=== PATIENT | female | born 2000 | race Caucasian/White ===

== ENCOUNTER 2025-08-01 09:03 | Outpatient (AMB) | payer MEDICAID, SELFPAY ==
[2025-08-01 09:16] VITALS: BP 97/63; PULSE 83; RESP 18; TEMP 36.4; O2SAT 96; BMI 29.8
--- NOTE | 2025-08-01 09:16 | AMB.OBINITIA ---
Vital Signs 08/01/25 09:16 Height 1.6 m Height Method Stated Weight 76.43 kg Weight Measurement Method Standing Scale BMI 29.8 BP 97/63 Blood Pressure Source Automatic Cuff Blood Pressure Location Right Upper Arm Position Sitting Respiration 18 Pulse 83 Pulse Source Monitor Temp 97.6 F Temp Source Temporal Artery Scan Pulse Oximetry (%) 96 Oxygen Delivery Method Room Air Allergies/Home Meds Allergies & Medications Allergies No Known Allergies Allergy (Verified 08/01/25 09:17) Medication Reconciliation No Known Home Medications 08/01/25 [History Confirmed 08/01/25] Intake Visit Data Collection New Patient or Established: New Patient (never been to [facility]) Reason for Visit:: OBI TRANSFER Seen by Clinical Staff ONLY (RN/MA): No Side Panel Hanger Required: No Do You Feel Safe at Home: Yes Authorities Contacted: N/A PCP or OBGYN visit in last 3 months: No Hx Now: Yes Are you currently on any form of Control: No Last menstrual period: 12/26/24 Pain Present Currently: No Pain Scale Used: Meidna-Nicholas/Numerical Pain scale:: 0 Smoking Status Smoking Status: Never smoker Immunizations Flu Vaccine in the Last 12 Months: No Flu Vaccine Exclusion Criteria: No Exclusion Criteria Questionnaires Covid-19 Vaccine Questionnaire Has patient been vacinated for Covid-19 Have you been vacinated for Covid-19: No PHQ-9 PHQ-2 Over the last 2 weeks, how often have you been bothered by any of the following problems? 1. Little interest or pleasure in doing things: not at all 2. Feeling down, depressed, or hopeless: not at all Total score: 0 PHQ-9 3. Trouble falling or staying asleep, or sleeping too much: Not at all 4. Feeling tired or having little energy: Not at all 5. Poor appetite or overeating: Not at all 6. Feeling bad about yourself - or that you are a failure or have let yourself or your family down: Not at all 7. Trouble concentrating on things, such as reading the newspaper or watching television: Not at all 8. Moving or speaking so slowly that other people could have noticed? - Or the opposite - being so fidgety or restless that you have been moving around a lot more than usual: not at all 9. Thoughts that you would be better off or of hurting yourself in some way: Not at all Total score: 0 If you checked off any problems, how difficult have these problems made it for you to do your work, take care of things at home, or get along with other people?: not difficult at all Source: Developed by Drs. Krish Andrade, Jannie Troy, Zaid Mckinley and colleagues, with an educational teja from [employer]. Depression screen completed yes Social History Living Situation History Marital Status: Lives With: Family Housing: House Tobacco History Smoking Status: Never smoker Second Hand Smoke Exposure: No Alcohol History Alcohol Intake: Never Domestic Abuse History Do You Feel Safe at Home: Yes History of Present Illness HPI Narrative ?25 Years old G2 P?1at gestational age?based on last menstrual period of dated?. No complaints so far Here for first visit LPS LMP Ultrasound medical problems Allergies Surgical history social history OB Initial Visit OB Flowsheet OB Flowsheet Initial Weight: Not Recorded Date <del>?</del> EGA Weight BP Alb Glu CTX Pres Fundal ht FHR Mov Dilation Station Effacement Hx Notes Visit Note 08/01/25 <del>?</del> 33w 6d 76.43 kg 97/63 cephalic 35 151 active Menstrual History Menstrual reliability: unknown Flow: normal Menstrual regularity: irregular Monthly: No On control pills at conception: No OB History : 2 Para: 1 # of Living Children: 1 Delivery History 1st : Child's name: JENNIFER HUMMEL date: 12/09/21 sex: male Delivery type: Infection History & Risk Evaluation History of STDs: none Genetic Screening & History Genetic Screening/Teratology Counseling - Includes patient, baby's father, or anyone in either family with: 1. Patient's age 35 years or older as of estimated date of delivery: No 2. Thalassemia (Austrian, Kinyarwanda, Mediterranean, or Background); MCV less than 80: No 3. Neural Tube Defect (Meningomyelocele, Spina Bifida, or Anencephaly): No 4. Congenital Heart Defect: No 5. Down Syndrome: No 6. Alex-Sachs (Ashkenazi Yazidism, Cajun, Egyptian Liberian): No 7. Judith Disease (Ashkenazi Yazidism): No 8. Familial Dysautonomia (Ashkenazi Yazidism): No 9. Sickle Cell Disease or Trait (): No 10. Hemophilia or other blood disorders: No 11. Muscular Dystrophy: No 12. Cystic Fibrosis: No 13. Montgomery's Chorea: No 14. Mental Retardation/Autism: Yes 15. Other inherited genetic or chromosomal disorder: No 16. Maternal Metabolic Disorder (EG,TYPE 1 Diabetes, PKU): No 17. Patient or baby's father had a child with defects not listed above: No 18. Recurrent loss or a stillbirth: No 19. Medications (including supplements, vitamins, herbs or otc drugs)/illicit/recreational drugs/alcohol since last menstrual period: No 20. Any other: No Infection History Other (see comments) Source: [employer] Office Procedures OBC Clinic LOC & Office Proc's Nursing/Assessment Patient Status: Initial/New Patient OB Clinic Nursing Assessment: Medication Reconciliation, Update PMH in EMR and Vital Signs OB Clinic Coordination of Care: Complex Care and Chronic Disease 1-5, Education Complex Pt/Fam, Consent,records obtained, informed consent, Lab and Imaging orders, Results/Orders obtained and Staff clarify orders Special Needs: Heart tones New Patient Charge New Patient Point Assignment: [id number] New Patient Point Charge: APPLICATIONS ARCHITECT Level 4 ([id number]) Assessment & Plan Diagnosis / Problem List (1) : Status: Acute Qualifiers: Weeks of gestation: 33 weeks Qualified Code(s): Z3A.33 - 33 weeks gestation of Plan: 33.6 weeks and high risk /GDM A2 / previous c section/ Patient on insulin and no sugar log / she does not know how much insulin she is taking / Plan HbA1c/ CBC and CMP and follow up (2) GDM, class A2: Status: Acute Plan: see abov (3) Previous section: Status: Acute Plan: repeat schedule at 39 weeks (4) Suspected anomaly, antepartum: Status: Acute Qualifiers: Fetus number: single or unspecified fetus Qualified Code(s): O35.9XX0 - Maternal care for (suspected) abnormality and damage, unspecified, not applicable or unspecified Plan hypotelorism susected on US done 07/28/2025 at [facility] Additional Plan echo/ request [facility] records and schedule for diabetic counselling / NST biweekly Follow Up: 2 Weeks
== END 2025-08-01 10:23 | disposition home or self-care (01) ==
PROVIDERS: Supervising Provider Obstetrics & Gynecology; Visit Provider Obstetrics & Gynecology
DX: O09.893 Supervision of other high risk pregnancies, third trimester (principal); O24.414 Gestational diabetes mellitus in pregnancy, insulin controlled; O35.8XX0 Maternal care for other (suspected) fetal abnormality and damage, not applicable or unspecified; O09.293 Supervision of pregnancy with other poor reproductive or obstetric history, third trimester; O34.219 Maternal care for unspecified type scar from previous cesarean delivery; Z3A.33 33 weeks gestation of pregnancy
CPT/HCPCS: 99204; G0463

== ENCOUNTER 2025-08-23 10:52 | Outpatient (AMB) | payer MEDICAID, SELFPAY ==
[2025-08-23 10:58] VITALS: BP 107/65; PULSE 83; RESP 18; TEMP 36.2; O2SAT 98; BMI 30.4
--- NOTE | 2025-08-23 10:58 | AMB.OBPNC ---
Vital Signs 08/23/25 10:58 Height 1.6 m Height Method Stated Weight 78.075 kg Weight Measurement Method Standing Scale BMI 30.4 BP 107/65 Blood Pressure Source Automatic Cuff Blood Pressure Location Left Upper Arm Position Sitting Respiration 18 Pulse 83 Pulse Source Monitor Temp 97.2 F Temp Source Oral Pulse Oximetry (%) 98 Oxygen Delivery Method Room Air Allergies/Home Meds Allergies & Medications Allergies No Known Allergies Allergy (Verified 08/23/25 10:59) Medication Reconciliation No Known Home Medications 08/01/25 [History Confirmed 08/23/25] Immunizations Immunizations Flu Vaccine in the Last 12 Months: No Flu Vaccine Exclusion Criteria: No Exclusion Criteria Care OB Visit Log OB Flowsheet Initial Weight: Not Recorded Date <del>?</del> EGA Weight BP Alb Glu CTX Pres Fundal ht FHR Mov Dilation Station Effacement Hx Notes Visit Note 08/01/25 <del>?</del> 33w 6d 76.43 kg 97/63 cephalic 35 151 active RIGOBERTO Calculator Estimated Delivery Date Method Current WG Current Estimate 09/13/25 Ultrasound #1 37w 0d Other Estimates 10/02/25 LMP (Uncertain) 34w 2d Notes Visit Date: 08/01/25 Last Updated by: Rossy Schultz MD 25 years old , previous c section/GDM A2 since first trimester / referred from Dr Pate and patient does not know how much insulin she is taking/ she states after her first c section in [place] in 2021 about 3 weeks later she had to go back to the hospital and she does not know what happened . No records are available from Dr Pate/ [facility] regarding that / Patient denies any h/o thrombosis / she is a poor historian / There is no echo on file / Will refer for echo / Patient states her genetic testing was normal for Down's syndrome and MFM report from 07/28/2025 recommends delivery at 39 weeks and also NST biweekly / Will try to obtain record from [facility] / Records obtained from [facility] / Patient was admitted at [facility] from 12/25/2021 till 01/15/2022 and she had a anterior abd wall wound abscess / septic shock and bilateral Pulmonary emboli/ Most likely she had bilateral emboli due to sepsis / however will refer urgently to [facility] for consultation and evaluation for need for anticogulation. So far her care was being done with Dr Pate but no evaluation of her past medical history was done there and we had to request records and get details of her past medical history Per referral Labs done 01/31/2025 A pos /RPR/HIV and Hep B Negative/ Rubella immune Materniti 21 negative /GC and CT negative Office Procedures OBC Clinic LOC & Office Proc's Nursing/Assessment Patient Status: Established Patient OB Clinic Nursing Assessment: Medication Reconciliation, Update PMH in EMR and Vital Signs OB Clinic Coordination of Care: Complex Care and Chronic Disease 1-5, Consent,records obtained, informed consent, Education Simp Pt/Fam, Lab and Imaging orders, Results/Orders obtained and Staff clarify orders Special Needs: Heart tones Miscellaneous Interventions: Pelvic Comp w/OB cult Established Patient Charge Established Patient Point Assignment: 150 Established Patient Point Charge: EP Level 4 (120-155)
--- NOTE | 2025-08-23 10:59 | AMB.OBPNC ---
Vital Signs 08/23/25 10:58 08/23/25 11:15 Height 1.6 m Height Method Stated Weight 78.075 kg Weight Measurement Method Standing Scale BMI 30.4 BP 107/65 107/65 Blood Pressure Source Automatic Cuff Blood Pressure Location Left Upper Arm Position Sitting Respiration 18 18 Pulse 83 83 Pulse Source Monitor Temp 97.2 F 97.2 F Temp Source Oral Pulse Oximetry (%) 98 98 Oxygen Delivery Method Room Air Allergies/Home Meds Allergies & Medications Allergies No Known Allergies Allergy (Verified 08/23/25 10:59) Medication Reconciliation No Known Home Medications 08/01/25 [History Confirmed 08/23/25] Immunizations Immunizations Flu Vaccine in the Last 12 Months: No Flu Vaccine Exclusion Criteria: No Exclusion Criteria Care OB Visit Log OB Flowsheet Initial Weight: Not Recorded Date <del>?</del> EGA Weight BP Alb Glu CTX Pres Fundal ht FHR Mov Dilation Station Effacement Hx Notes Visit Note 08/01/25 <del>?</del> 33w 6d 76.43 kg 97/63 cephalic 35 151 active 08/23/25 <del>?</del> 37w 0d 78.075 kg 107/65 107/65 cephalic 37 158 active MFM US done 08/22/2025 / needs better control of her DM and she is on 60 units Lantus q hs and Lispro 5 units TID / hypotelorism suspected and baby needs exam after delivery from [facility] RIGOBERTO Calculator Estimated Delivery Date Method Current WG Current Estimate 09/13/25 Ultrasound #1 37w 5d Other Estimates 10/02/25 LMP (Uncertain) 35w 0d Notes Visit Date: 08/23/25 Last Updated by: Rossy Schultz MD 25 years old , previous c section/GDM A2 since first trimester / referred from Dr Pate and patient does not know how much insulin she is taking / 3 weeks after her last c section she had to go back to [facility] and she does not know what happened . No records are available from Dr Pate/ [facility] regarding that / Patient denies any h/o thrombosis / she is a poor historian / There is no echo on file / Will refer for echo / Patient states her genetic testing was normal for Down's syndrome and MFM report from 07/28/2025 recommends delivery at 39 weeks and also NST biweekly / Will try to obtain record from [facility] / Records obtained from [facility] / Patient was admitted at [facility] from 12/25/2021 till 01/15/2022 and she had a anterior abd wall wound abscess / septic shock and bilateral Pulmonary emboli/ Most likely she had bilateral emboli due to sepsis / however will refer urgently to [facility] for consultation and evaluation for need for anticogulation. So far her care was being done with Dr Pate but no evaluation of her past medical history was done there and we had to request records and get details of her past medical history Per referral Labs done 01/31/2025 A pos /RPR/HIV and Hep B Negative/ Rubella immune Materniti 21 negative /GC and CT negative Today increase Lantus to 64 units qhs and 6 unita in am / continue Lispro 5 units with meals / NST weekly Hb A1c is 7 on 08/01/2025/ growth is in 85 th percentile but abd in 98th percentile / GBS today and follow up in 1 week / will schedule repeat LTCS at 39 weeks / 09/10/2025 or later Visit Date: 08/01/25 Last Updated by: Rossy Schultz MD 25 years old , previous c section/GDM A2 since first trimester / referred from Dr Pate and patient does not know how much insulin she is taking/ she states after her first c section in [place] in 2021 about 3 weeks later she had to go back to the hospital and she does not know what happened . No records are available from Dr Pate/ [facility] regarding that / Patient denies any h/o thrombosis / she is a poor historian / There is no echo on file / Will refer for echo / Patient states her genetic testing was normal for Down's syndrome and MFM report from 07/28/2025 recommends delivery at 39 weeks and also NST biweekly / Will try to obtain record from [facility] / Records obtained from [facility] / Patient was admitted at [facility] from 12/25/2021 till 01/15/2022 and she had a anterior abd wall wound abscess / septic shock and bilateral Pulmonary emboli/ Most likely she had bilateral emboli due to sepsis / however will refer urgently to [facility] for consultation and evaluation for need for anticogulation. So far her care was being done with Dr Pate but no evaluation of her past medical history was done there and we had to request records and get details of her past medical history Per referral Labs done 01/31/2025 A pos /RPR/HIV and Hep B Negative/ Rubella immune Materniti 21 negative /GC and CT negative Office Procedures OBC Clinic LOC & Office Proc's Nursing/Assessment Patient Status: Established Patient OB Clinic Nursing Assessment: Medication Reconciliation, Update PMH in EMR and Vital Signs OB Clinic Coordination of Care: Complex Care and Chronic Disease 1-5, Consent,records obtained, informed consent, Education Simp Pt/Fam, Lab and Imaging orders, Results/Orders obtained and Staff clarify orders Special Needs: Heart tones Miscellaneous Interventions: Pelvic Comp w/OB cult Established Patient Charge Established Patient Point Assignment: 150 Established Patient Point Charge: EP Level 4 (120-155) Assessment & Plan Diagnosis / Problem List (1) Hx of pulmonary embolus: Status: Acute (2) H/O severe sepsis: Status: Acute (3) Suspected anomaly, antepartum: Status: Acute Qualifiers: Fetus number: single or unspecified fetus Qualified Code(s): O35.9XX0 - Maternal care for (suspected) abnormality and damage, unspecified, not applicable or unspecified Assessment and Plan: 25 years old , previous c section/GDM A2 since first trimester / referred from Dr Pate and patient does not know how much insulin she is taking / 3 weeks after her last c section she had to go back to [facility] and she does not know what happened . No records are available from Dr Pate/ [facility] regarding that / Patient denies any h/o thrombosis / she is a poor historian / There is no echo on file / Will refer for echo / Patient states her genetic testing was normal for Down's syndrome and [facility] report from 07/28/2025 recommends delivery at 39 weeks and also NST biweekly / Will try to obtain record from [facility] / Records obtained from [facility] / Patient was admitted at [facility] from 12/25/2021 till 01/15/2022 and she had a anterior abd wall wound abscess / septic shock and bilateral Pulmonary emboli/ Most likely she had bilateral emboli due to sepsis / however will refer urgently to [facility] for consultation and evaluation for need for anticogulation. So far her care was being done with Dr Pate but no evaluation of her past medical history was done there and we had to request records and get details of her past medical history Per referral Labs done 01/31/2025 A pos /RPR/HIV and Hep B Negative/ Rubella immune Materniti 21 negative /GC and CT negative Today increase Lantus to 64 units qhs and 6 unita in am / continue Lispro 5 units with meals / NST weekly Hb A1c is 7 on 08/01/2025/ growth is in 85 th percentile but abd in 98th percentile / GBS today and follow up in 1 week / will schedule repeat LTCS at 39 weeks / 09/10/2025 or later (4) Previous section: Status: Acute (5) GDM, class A2: Status: Acute Additional Plan see above / GBS and insulin adjustment done today best EDC per [facility] is 09/17/2024 and schedule repeat LTCS at 39 weeks
[2025-08-23 11:15] VITALS: BP 107/65; PULSE 83; RESP 18; TEMP 36.2; O2SAT 98
== END 2025-08-23 11:13 | disposition home or self-care (01) ==
LOC: HODSOBC 10:52
PROVIDERS: Supervising Provider Obstetrics & Gynecology; Visit Provider Obstetrics & Gynecology
DX: O09.293 Supervision of pregnancy with other poor reproductive or obstetric history, third trimester (principal); O34.211 Maternal care for low transverse scar from previous cesarean delivery; O09.893 Supervision of other high risk pregnancies, third trimester; O35.AXX0 Maternal care for other (suspected) fetal abnormality and damage, fetal facial anomalies, not applicable or unspecified; O24.414 Gestational diabetes mellitus in pregnancy, insulin controlled; Z3A.37 37 weeks gestation of pregnancy; Z86.711 Personal history of pulmonary embolism
CPT/HCPCS: 99214; G0463